=== PATIENT | male | born 1975 | race African-American/Black ===

== ENCOUNTER 2017-12-23 15:49 | Emergency (ER) | payer OTHER ==
[~2017-12-23] VITALS: Ht 175.3 cm; Wt 104.3 kg
[2017-12-23 15:52] VITALS: TEMP 36.8; Ht 175.3 cm; Wt 104.3 kg
[2017-12-23] MEDS ORDERED: KETOROLAC TROMETHAMINE 60 MG/2 ML VIAL IM STA (16:11)
[2017-12-23] MEDS ORDERED: DIAZEPAM 5MG TAB PO STA (16:11)
--- NOTE | 2017-12-23 16:21 | EMERGENCY ROOM VISIT NOTE ---
ED Visit Note First contact with patient: 15:55 CHIEF COMPLAINT: Neck pain HISTORY OF PRESENT ILLNESS: This 42-year-old male patient presents to the emergency department complaining of pain in the neck and right arm for the past 1-2 weeks. The patient rates the pain as throbbing, aching and 6/10. The patient has taken Aleve and has used BenGay for the pain with some improvement. He also states that the pain feels better after a hot shower. The patient does not have a history of previous neck problems. The patient states that the pain seems to come from his neck at times and other times seems to come from his right shoulder blade area, radiates down into the arm. He has had some numbness and tingling in his thumb and pointer finger for the past 1-1/2 weeks. He denies any pain in the left arm or left side of the neck. The patient denies chest pain or shortness of breath. He denies any known injury to the neck or shoulder. There was no head injury and no loss of consciousness. The patient denies headache, blurred vision, abdominal pain, nausea, or vomiting. The patient denies change in personality. 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 He also carries a backpack regularly. He denies any abdominal pain, lower back pain, saddle paresthesias, bowel or bladder dysfunction. REVIEW OF SYSTEMS: A complete 10 point review of systems was reviewed with the patient with pertinent positives and negatives as per history of present illness. All else were negative. ALLERGIES: No known allergies MEDICATIONS: No medications. PMH: No significant past medical or surgical history. SOCIAL HISTORY: Lives at home. He is a current everyday smoker. PHYSICAL EXAM: VITALS: Vitals are noted on the nurse's note and reviewed by myself. Vital signs stable. GENERAL: Pleasant and cooperative, in no acute distress, non- diaphoretic, well-developed well-nourished. SKIN: Capillary reflex less than 2 seconds. HEENT: Normocephalic. PERRL. EOMI. Nares patent. Mucous membranes moist. Neck is supple without nuchal rigidity. Cervical spine is not tender to palpation. The patient has some tenderness of the paraspinal muscles on the right. There is no lymphadenopathy. MUSCULOSKELETAL: The patient has full range of motion of the bilateral arms. Strength 5/5 of the bilateral upper extremities. The patient has tenderness with turning of the neck side to side. NEURO: Patient was alert and oriented to person place and time. Sensation intact to light and sharp touch, though patient reports diminished sensation in the thumb and pointer finger distribution of the right hand, and is unable to differentiate sharp and dull in the tips of those 2 fingers. IMAGING: SOFT TISSUE NECK HISTORY: 42 years-old Male right sided neck pain, arm pain and tingling acute right-sided neck pain with radicular symptoms COMPARISON: None available TECHNIQUE: 2 radiographs of the soft tissues of the neck FINDINGS: There is straightening of the normal cervical lordosis with at least mild intervertebral disc space narrowing at C5-C6 and C6-C7 with associated endplate spurring. No prevertebral soft tissue swelling. Epiglottis and aryepiglottic folds are within normal limits. No opaque foreign body. Imaged lung apices appear clear. IMPRESSION: 1. Unremarkable appearance of the soft tissues of the neck. 2. Degenerative changes of the cervical spine as above. EMERGENCY DEPARTMENT COURSE: I examined the patient. Differential diagnosis includes cervical radiculopathy, musculoskeletal pain, sprain/strain, muscle spasm, degenerative disc disease, spinal cord injury, among others. Cervical spine x-ray was performed, reviewed by myself and radiologist and shows no acute fracture or subluxation. There is disc space narrowing at C5-C6 and C6-C7 , which may correlate with the patient's area of radicular pain and finger numbness. Patient was treated with IM Toradol and PO Valium, with good improvement in his symptoms. The patient was provided with Rx for Medrol Dosepak. The patient was encouraged to follow-up with the orthopedic spine surgeon and his primary care provider for further management of his cervical radiculopathy. Patient was also given strict return precautions if symptoms worsen, he verbalized understanding. Patient was discharged home in stable condition and ambulatory. Current/Historical Medications Scheduled Methylprednisolone (Medrol Dosepak), 0 PO DAILY Allergies Coded Allergies: No Known Allergies (Verified , 12/23/17) Vital Signs Date Time Temp Pulse Resp B/P (MAP) Pulse Ox O2 Delivery O2 Flow Rate FiO2 12/23/17 17:52 86 15 116/72 100 12/23/17 15:52 36.8 104 20 162/89 98 Room Air Medications Administered Medications (Trade) Dose Ordered Sig/Estevan Route Start Time Stop Time Status Last Admin Dose Admin Ketorolac Tromethamine (Toradol Inj) 60 mg NOW STAT IM 12/23/17 16:11 12/23/17 16:15 DC 12/23/17 16:25 60 MG Diazepam (Valium Tab) 10 mg NOW STAT PO 12/23/17 16:11 12/23/17 16:15 DC 12/23/17 16:25 10 MG Departure Information Impression Primary Impression: Cervical radiculopathy Dispostion Home / Self-Care Condition GOOD Prescriptions Methylprednisolone (MEDROL DOSEPAK) 4 Mg Geovani 0 PO DAILY, #1 PKT Prov: Veda Negron, JOINERY MACHINIST 12/23/17 Referrals Catia Humphrey M.D. (PCP) Hernesto Lynch D.O. Patient Instructions ED Cervical Radiculopathy, [facility] Additional Instructions You have been treated in the Emergency Department your neck and right arm pain. You have been prescribed a Medrol Dosepak, which is a steroid. This is to treat the inflammation in your neck. Please take as prescribed. For pain control, you may take [id number] Regular strength (325mg/tab) Tylenol (acetaminophen) 2 tabs every 4-6 hours as needed. Do not exceed 10 tablets in a 24 hour period. Avoid taking more than 3000 mg of Tylenol per day. This includes any other sources of acetaminophen you may take on a regular basis. Take it easy for the next few days, no strenuous activity, heavy lifting, or bending/twisting motions. Avoid repetitive exercises or motions with the right arm to allow for rest. Alternate heat and ice for comfort. After heat, you may do gentle stretching and massage to the low back. Follow up with your primary care provider or the orthopedic spine surgeon in the next few days for further management. You may benefit from physical therapy. Please return to the ER if any problems with bowel or bladder function, new onset of numbness or weakness in your arms or legs, high fevers, severe headaches, or any other concerns. Work Instructions Return To Work: 2 days
--- NOTE | 2017-12-23 17:17 | DIAGNOSTIC IMAGING REPORT ---
SOFT TISSUE NECK HISTORY: 42 years-old Male right sided neck pain, arm pain and tingling acute right-sided neck pain with radicular symptoms COMPARISON: None available TECHNIQUE: 2 radiographs of the soft tissues of the neck FINDINGS: There is straightening of the normal cervical lordosis with at least mild intervertebral disc space narrowing at C5-C6 and C6-C7 with associated endplate spurring. No prevertebral soft tissue swelling. Epiglottis and aryepiglottic folds are within normal limits. No opaque foreign body. Imaged lung apices appear clear. IMPRESSION: 1. Unremarkable appearance of the soft tissues of the neck. 2. Degenerative changes of the cervical spine as above. The above report was generated using voice recognition software. It may contain grammatical, syntax or spelling errors. Electronically signed by: Hayder Mullins M.D. 12/23/2017 5:15 PM Dictated Date/Time: 12/23/2017 5:14 PM
[2017-12-23] MEDS ORDERED: METH4PAK PO (17:24)
[2017-12-23 17:52] VITALS: BP 116/72; PULSE 86; O2SAT 100
== END 2017-12-23 17:53 | disposition home or self-care (01) ==
LOC: C.EDB 15:51 → C.EDD 17:53
DX: M54.12 Radiculopathy, cervical region (principal); F17.210 Nicotine dependence, cigarettes, uncomplicated

== ENCOUNTER 2018-01-14 07:16 | Emergency (ER) | payer OTHER ==
[~2018-01-14] VITALS: Ht 175.3 cm; Wt 81.8 kg
[2018-01-14 07:20] VITALS: TEMP 36.4; Ht 175.3 cm; Wt 81.8 kg
[2018-01-14] MEDS ORDERED: KETOROLAC TROMETHAMINE 30 MG/ML VIAL IV STA (07:25)
[2018-01-14] MEDS ORDERED: ONDANSETRON INJ 2 MG/ML 2 ML VIAL IV STA (07:25)
[2018-01-14] MEDS ORDERED: SODIUM CHLORIDE 0.9% 1000ML 1,000 ML IV STA (07:25)
[2018-01-14 07:40] LABS: BASO % 0.3 %; BASO ABS # 0.02 K/uL (0-0.2); EOS % 6.8 %; EOS ABS # 0.49 K/uL (0-0.5); HEMATOCRIT 43.7 % (42-52); HEMOGLOBIN 15.5 g/dL (14.0-18.0); IG# 0.04 K/uL (0.00-0.02); LYMPH ABS # 2.46 K/uL (1.2-3.4); MEAN CELL VOLUME 81.1 fL (80-100); MEAN CORPUSCULAR HEMOGLOBIN 28.8 pg (25-34); MEAN CORPUSCULAR HGB CONC 35.5 g/dl (32-36); MEAN PLATELET VOLUME 9.2 fL (7.4-10.4); MONO % 9.1 %; MONO ABS # 0.66 K/uL (0.11-0.59); NEUT % 49.2 %; NEUT ABS # 3.57 K/uL (1.4-6.5); PLATELET COUNT 265 K/uL (130-400); RED CELL DISTRIBUTION WIDTH CV 14.9 % (11.5-14.5); RED CELL DISTRIBUTION WIDTH SD 43.7 fL (36.4-46.3); WHITE BLOOD COUNT 7.24 K/uL (4.8-10.8)
[2018-01-14] MEDS ORDERED: ACETAMINOPHEN 500 MG TAB PO STA (08:00)
[2018-01-14 08:09] LABS: ALBUMIN 3.6 gm/dl (3.4-5.0); CALCIUM 8.5 mg/dl (8.5-10.1); CREATININE 1.24 mg/dl (0.60-1.40); POTASSIUM 4.4 mmol/L (3.5-5.1)
[2018-01-14 08:12] LABS: TOTAL PROTEIN 6.3 gm/dl (6.4-8.2)
[2018-01-14] MEDS ORDERED: ONDA4TAB10 SL (09:10)
[2018-01-14 09:20] VITALS: BP 140/81; PULSE 67; O2SAT 99
--- NOTE | 2018-01-14 09:23 | EMERGENCY ROOM VISIT NOTE ---
History Report prepared by Lisbeth: Mariano Pelayo Under the Supervision of: Dr. Enoc Tafoya M.D. First contact with patient: 07:20 Chief Complaint: FEVER Stated Complaint: FEVER History of Present Illness The patient is a 42 year old male who presents to the Emergency Room with complaints of intermittent vomiting beginning yesterday. He has vomited twice total. He also complains of low grade fevers and diarrhea. The patient denies abdominal pain. He states that he ate pizza at his friend's house a few days ago otherwise denies eating anything abnormal. He denies recent antibiotic use. Source of History: patient Onset: Yesterday Symptom Intensity: two episodes Quality: other (vomiting) Timing: intermittent Associated Symptoms: + fevers (low grade), + diarrhea, No abdominal pain Review of Systems See HPI for pertinent positives & negatives. A total of 10 systems reviewed and were otherwise negative. Past Medical & Surgical Medical Problems: (1) No Known Active Medical Problems Family History No pertinent family history stated. Social History Smoking Status: Current Every Day Smoker Alcohol Use: none Drug Use: none Marital Status: single Housing Status: lives alone Occupation Status: employed Current/Historical Medications Scheduled Ondasetron Odt (Zofran Odt), 4 MG SL Q6H Allergies Coded Allergies: No Known Allergies (Verified , 01/14/18) Physical Exam Vital Signs Date Time Temp Pulse Resp B/P (MAP) Pulse Ox O2 Delivery O2 Flow Rate FiO2 01/14/18 09:20 67 17 140/81 99 01/14/18 08:38 67 17 140/81 99 Room Air 01/14/18 07:45 67 01/14/18 07:20 36.4 78 17 146/75 98 Room Air Physical Exam GENERAL: Awake, alert, well-appearing, in no acute distress HENT: Normocephalic, atraumatic. Oropharynx unremarkable. EYES: Normal conjunctiva. Sclera non-icteric. NECK: Supple. No nuchal rigidity. FROM. No JVD. RESPIRATORY: Clear to auscultation. CARDIAC: Regular rate, normal rhythm. Extremities warm and well perfused. Pulses equal. ABDOMEN: Soft, non-distended. No tenderness to palpation. No rebound or guarding. No masses. RECTAL: Deferred. MUSCULOSKELETAL: Chest examination reveals no tenderness. The back is symmetrical on inspection without obvious abnormality. There is no CVA tenderness to palpation. No joint edema. LOWER EXTREMITIES: Calves are equal size bilaterally and non-tender. No edema. No discoloration. NEURO: Normal sensorium. No sensory or motor deficits noted. SKIN: No rash or jaundice noted. Medical Decision & Procedures Laboratory Results 01/14/18 07:30 Red Blood Count 5.39, Mean Corpuscular Volume 81.1, Mean Corpuscular Hemoglobin 28.8, Mean Corpuscular Hemoglobin Concent 35.5, Mean Platelet Volume 9.2, Neutrophils (%) (Auto) 49.2, Lymphocytes (%) (Auto) 34.0, Monocytes (%) (Auto) 9.1, Eosinophils (%) (Auto) 6.8, Basophils (%) (Auto) 0.3, Neutrophils # (Auto) 3.57, Lymphocytes # (Auto) 2.46, Monocytes # (Auto) 0.66, Eosinophils # (Auto) 0.49, Basophils # (Auto) 0.02 01/14/18 07:30 Test 01/14/18 07:30 01/14/18 08:40 White Blood Count 7.24 K/uL (4.8-10.8) Red Blood Count 5.39 M/uL (4.7-6.1) Hemoglobin 15.5 g/dL (14.0-18.0) Hematocrit 43.7 % (42-52) Mean Corpuscular Volume 81.1 fL (80-100) Mean Corpuscular Hemoglobin 28.8 pg (25-34) Mean Corpuscular Hemoglobin Concent 35.5 g/dl (32-36) Platelet Count 265 K/uL (130-400) Mean Platelet Volume 9.2 fL (7.4-10.4) Neutrophils (%) (Auto) 49.2 % Lymphocytes (%) (Auto) 34.0 % Monocytes (%) (Auto) 9.1 % Eosinophils (%) (Auto) 6.8 % Basophils (%) (Auto) 0.3 % Neutrophils # (Auto) 3.57 K/uL (1.4-6.5) Lymphocytes # (Auto) 2.46 K/uL (1.2-3.4) Monocytes # (Auto) 0.66 K/uL (0.11-0.59) Eosinophils # (Auto) 0.49 K/uL (0-0.5) Basophils # (Auto) 0.02 K/uL (0-0.2) RDW Standard Deviation 43.7 fL (36.4-46.3) RDW Coefficient of Variation 14.9 % (11.5-14.5) Immature Granulocyte % (Auto) 0.6 % Immature Granulocyte # (Auto) 0.04 K/uL (0.00-0.02) Anion Gap 5.0 mmol/L (3-11) Est Creatinine Clear Calc Drug Dose 79.2 ml/min Estimated GFR () 83.8 Estimated GFR (Non- 72.3 BUN/Creatinine Ratio 14.3 (10-20) Calcium Level 8.5 mg/dl (8.5-10.1) Total Bilirubin 0.4 mg/dl (0.2-1) Direct Bilirubin 0.1 mg/dl (0-0.2) Aspartate Amino Transf (AST/SGOT) 23 U/L (15-37) Alanine Aminotransferase (ALT/SGPT) 37 U/L (12-78) Alkaline Phosphatase 44 U/L (45-117) Total Protein 6.3 gm/dl (6.4-8.2) Albumin 3.6 gm/dl (3.4-5.0) Lipase 152 U/L (73-393) Urine Color YELLOW Urine Appearance CLOUDY (CLEAR) Urine pH 5.0 (4.5-7.5) Urine Specific [place] 1.021 (1.000-1.030) Urine Protein NEG (NEG) Urine Glucose (UA) NEG (NEG) Urine Ketones NEG (NEG) Urine Occult Blood NEG (NEG) Urine Nitrite NEG (NEG) Urine Bilirubin NEG (NEG) Urine Urobilinogen NEG (NEG) Urine Leukocyte Esterase NEG (NEG) Urine WBC (Auto) 1-5 /hpf (0-5) Urine RBC (Auto) 0-4 /hpf (0-4) Urine Hyaline Casts (Auto) 0 /lpf (0-5) Urine Epithelial Cells (Auto) 0-5 /lpf (0-5) Urine Bacteria (Auto) NEG (NEG) Labs reviewed by ED physician. Medications Administered Medications (Trade) Dose Ordered Sig/Estevan Route Start Time Stop Time Status Last Admin Dose Admin Sodium Chloride 1,000 ml @ 999 mls/hr Q1H1M STAT IV 01/14/18 07:25 01/14/18 08:25 DC 01/14/18 07:33 999 MLS/HR Ketorolac Tromethamine (Toradol Inj) 30 mg NOW STAT IV 01/14/18 07:25 01/14/18 07:26 DC 01/14/18 07:34 30 MG Ondansetron HCl (Zofran Inj) 4 mg NOW STAT IV 01/14/18 07:25 01/14/18 07:26 DC 01/14/18 07:33 4 MG Acetaminophen (Tylenol Tab) 1,000 mg NOW STAT PO 01/14/18 08:00 01/14/18 08:01 DC 01/14/18 08:06 1,000 MG ED Course 0722: Past medical records reviewed. The patient was evaluated in room A10. A complete history and physical examination was performed. 0725: Ordered Zofran Inj 4 mg IV, Toradol Inj 30 mg IV, Sodium Chloride 1000 ml @ 999 mls/hr IV. 0800: Ordered Tylenol Tab 1000 mg PO. 0910: Upon reexamination the patient is resting comfortably. I discussed results and treatment plan with the patient. He verbalizes agreement and understanding. The patient is ready for discharge. Medical Decision Differential diagnosis: Etiologies such as C. Difficile colitis, gastroenteritis, food borne illness, infections, appendicitis, diverticulitis, inflammatory bowel disease, obstruction, GI bleed, biliary pathology, as well as others were entertained. This is a 42-year-old male who presents emergency department complaining of gastroenteritis-like symptoms. The patient was given Toradol normal saline bolus as well as Zofran. Repeat examination revealed improvement patient's symptoms. Serial abdominal examinations were performed on the patient in the emergency department and using shared medical decision-makingand the fact that the patient is nontender on my examination we made the decision not to do any imaging to spare the patient radiation. I do believe that the patient is well enough to be discharged home. Patient will be placed on Zofran. Patient was in agreement with the treatment plan. Medication Reconcilliation Current Medication List: was personally reviewed by me Blood Pressure Screening Patient's blood pressure: Elevated blood pressure Blood pressure disposition: Elevated BP felt to be situational Impression Primary Impression: Fever Scribe Attestation The scribe's documentation has been prepared under my direction and personally reviewed by me in its entirety. I confirm that the note above accurately reflects all work, treatment, procedures, and medical decision making performed by me. Departure Information Dispostion Home / Self-Care Prescriptions Ondasetron Odt (ZOFRAN ODT) 4 Mg Tab 4 MG SL Q6H for Nausea, #6 TAB Prov: Enoc Tafoya MD 01/14/18 Referrals Catia Humphrey M.D. (PCP) Forms HOME CARE DOCUMENTATION FORM, IMPORTANT VISIT INFORMATION Patient Instructions ED Gastroenteritis Report Pend, [facility] Additional Instructions Culture results are usually available in approx 48 hours You have been examined and treated today on an emergency basis only. This is not a substitute for, or an effort to provide, complete comprehensive medical care. It is impossible to recognize and treat all injuries or illnesses in a single emergency department visit. It is therefore important that you follow up closely with Dr Humprhey. Call as soon as possible for an appointment. Thank you for your time and consideration. I look forward to speaking with you again soon. Please don't hesitate to call us if you have any questions. Problem Qualifiers Primary Impression: Fever Fever type: unspecified Qualified Codes: R50.9 - Fever, unspecified
== END 2018-01-14 09:27 | disposition home or self-care (01) ==
LOC: C.EDB 07:17 → C.EDA 09:27
DX: R50.9 Fever, unspecified (principal); F17.210 Nicotine dependence, cigarettes, uncomplicated

== ENCOUNTER 2018-01-31 16:42 | Emergency (ER) | payer OTHER ==
[~2018-01-31] VITALS: Ht 175.3 cm; Wt 99.3 kg
[~2018-01-31 16:42] MED LIST: ONDA4TAB10 SL
[2018-01-31 16:50] VITALS: TEMP 37; Ht 175.3 cm; Wt 99.3 kg
[2018-01-31] MEDS ORDERED: CLINDAMYCIN IV 900 MG in DEXTROSE 5% 100ML 100 ML IV ONE (17:00)
[2018-01-31] MEDS ORDERED: CLIN300C2 PO ×2 (17:03→18:33)
--- NOTE | 2018-01-31 17:15 | EMERGENCY ROOM VISIT NOTE ---
History First contact with patient: 16:53 Chief Complaint: DENTAL PAIN Stated Complaint: SWELLING IN MY MOUTH Nursing Triage Summary: Patient presents ambulatory to triage with c/o left sided facial swelling that began last night Denies dental pain or injury Patient states symptoms with abscessed wisdom tooth History of Present Illness The patient is a 42 year old male who presents to the Emergency Room with complaints of left facial swelling and dental pain. The patient reports that he noticed some left lower jaw pain last evening. When he woke up this morning , the face was swollen, and had decreased pain. He denies any fever chills, difficulty swallowing, neck pain or tongue/throat swelling. The patient currently does not have a dentist. He has had dental fillings in the past, but denies any prior history of root canals on the left lower jawline. He currently rates his discomfort a 3 out of 10 on my exam. Review of Systems 10 system review was performed and was negative except for pertinent positives and negatives as indicated in history of present illness Past Medical/Surgical History Medical Problems: (1) No Known Active Medical Problems Medical Problems: (1) Depressive Disorder Nec (2) Radiculopathy, Cervical Region (3) Tobacco Use Disorder Surgical Problems: (1) No history of previous surgery Family History No significant family history Social History Smoking Status: Current Every Day Smoker Alcohol Use: none Drug Use: none Marital Status: single Housing Status: lives alone Occupation Status: employed Current/Historical Medications Scheduled Clindamycin Hcl (Cleocin), 300 MG PO QID Ondasetron Odt (Zofran Odt), 4 MG SL Q6H Physical Exam Vital Signs Date Time Temp Pulse Resp B/P (MAP) Pulse Ox O2 Delivery O2 Flow Rate FiO2 01/31/18 16:50 37.0 77 16 134/83 98 Room Air Physical Exam CONSTITUTIONAL: Healthy and well nourished. Alert and oriented X 3 with positive affect. Patient does not appear in any acute distress. HEENT: Normocephalic, atraumatic. Pupils equal, round and reactive. Patient has mild left facial swelling around the mandible region. No overriding erythema. OROPHARYNX: No obvious gingival erythema, fluctuance or pointing. No evidence for Hill's angina or retropharyngeal abscess. NECK: Full active range of motion without discomfort. LYMPHATICS: No obvious submandibular, submental or cervical chain adenopathy. RESPIRATORY: Clear to auscultation bilaterally with no wheezing, crackles, rhonchi or stridor. CARDIOVASCULAR: Regular rate and rhythm with no murmurs, rubs or gallops. INTEGUMENTARY: No rash or other significant dermatologic conditions noted. NEUROLOGIC: Facial sensations are intact. Medical Decision & Procedures ED Course Patient history and physical exam were performed. Nurse's notes were reviewed. Vital signs were reviewed and were normal. The patient was administered clindamycin 900 mg IV infusion, and will be provided prescriptions for Cleocin. He was encouraged alternate ibuprofen and Tylenol as needed for pain. I did encourage the patient to follow-up with a dentist for further definitive management. Return to the emergency department for any progressively worsening symptoms. The patient was happy with plan of care, voiced understanding of all discharge instructions, and denied any significant discomfort at the time of discharge. Medical Decision Medication Reconcilliation Current Medication List: was personally reviewed by me Blood Pressure Screening Patient's blood pressure: Normal blood pressure Impression Primary Impression: Dental abscess Departure Information Dispostion Home / Self-Care Prescriptions Clindamycin Hcl (CLEOCIN) 300 Mg Cap 300 MG PO QID for 10 Days, #40 CAP Prov: Timmy Aguilar PA 01/31/18 Forms HOME CARE DOCUMENTATION FORM, IMPORTANT VISIT INFORMATION Patient Instructions My [facility] Additional Instructions Complete all clindamycin antibiotics as prescribed. Intermittently apply heat to the face. Ibuprofen 800 mg and/or Tylenol 1000 mg every 8 hours. You may also alternate these medications for more effective pain relief: Ibuprofen --4 HRS--> Tylenol --4 HRS--> ibuprofen --4 HRS--> Tylenol .... Follow-up with a dentist for further definitive treatment.
[2018-01-31 18:27] VITALS: BP 144/71; PULSE 79; O2SAT 97
== END 2018-01-31 18:44 | disposition home or self-care (01) ==
LOC: C.EDB 16:44 → C.EDD 18:44
DX: K04.7 Periapical abscess without sinus (principal); F32.9 Major depressive disorder, single episode, unspecified; F17.210 Nicotine dependence, cigarettes, uncomplicated; Z79.899 Other long term (current) drug therapy